=== PATIENT | male | born 1975 | race Caucasian/White ===

== ENCOUNTER 2024-03-15 05:30 | Inpatient (IN) | payer MEDICAID ==
[2024-03-15] VITALS (8 sets, daily range): BP systolic 121–142; BP diastolic 74–83; PULSE 96–120; RESP 18–22; TEMP 97–102.4; O2SAT 95–98
[~2024-03-15] VITALS: Ht 180.3 cm; Wt 103.0 kg
[2024-03-15] MEDS ORDERED: magnesium Cl slow-release 64mg tablet PO PRN (08:45)
[2024-03-15] MEDS ORDERED: ondansetron/PF 4mg/2ml inj IV PRN (08:45)
[2024-03-15] MEDS ORDERED: magnesium sulf-water 4G/100mL 100 ML IV PRN (08:45)
[2024-03-15] MEDS ORDERED: potassium Cl 20 mEq SR tablet PO PRN ×2 (08:45)
[2024-03-15] MEDS ORDERED: magnesium sulf-water 2g/50mL 50 ML IV PRN (08:45)
[2024-03-15] MEDS ORDERED: potassium Cl 40MEQ/1/2NS 520ml 520 ML IV PRN (08:45)
[2024-03-15] MEDS ORDERED: AMLO-708 PO (08:48)
[2024-03-15] MEDS ORDERED: NICO2GUM29 (08:48)
[2024-03-15] MEDS: azithromycin 250mg tablet PO ONE (09:08)
[2024-03-15] MEDS: famotidine 20mg tablet PO ONE (09:08)
[2024-03-15] MEDS: ringers solution, lacted 1,000 ML IV ONE ×2 (09:08→12:24)
[2024-03-15] MEDS: enoxaparin 30mg/0.3ml syringe SUBCUT ONE (09:09)
[2024-03-15] MEDS: CefTRIAXone/D5W-Rocephin 1gm 50 ML IV ONE ×2 (09:10→19:08)
[2024-03-15 09:26] LABS: BASOPHILS % (AUTO) 0.1 % (0-1); EOSINOPHILS % (AUTO) 0 % (0-6); HEMATOCRIT 35.4 % (42.0-52.0); HEMOGLOBIN 11.8 g/dl (14.0-17.9); LYMPHOCYTES # (AUTO) 0.7 X10'3 (1.1-4.8); MEAN CORPUSCULAR HGB CONC 33.3 g/dL (33.0-36.5); MEAN CORPUSCULAR VOLUME 90.2 FL (78-98); MEAN PLATELET VOLUME 9.4 FL (7.4-10.4); MONOCYTES # (AUTO) 0.5 X10'3 (0-0.9); MONOCYTES % (AUTO) 2.3 % (2-12); NEUTROPHILS # (AUTO) 20.8 X10'3 (1.8-7.7); NEUTROPHILS % (AUTO) 94.6 % (42-75); PLATELET COUNT 229 X10'3 (140-440); RED BLOOD COUNT 3.92 X10'6 (4.70-6.10); RED CELL DISTRIBUTION WIDTH 13.1 % (11.5-14.5)
[2024-03-15 09:39] LABS: ALANINE AMINOTRANSFERASE 24 U/L (12-78); ALBUMIN 2.5 G/DL (3.4-5.0); ALBUMIN/GLOBULIN RATIO 0.6 (1.1-1.5); ALKALINE PHOSPHATASE 89 IU/L (46-116); ANION GAP 12 (8-16); ASPARTATE AMINO TRANSFERASE 11 U/L (10-37); BILIRUBIN,TOTAL 0.4 MG/DL (0.1-1.0); BLOOD UREA NITROGEN 17 MG/DL (7-18); BUN/CREATININE RATIO 13.5 (10.0-20.0); CALCIUM 8.7 MG/DL (8.5-10.1); CHLORIDE 95 MMOL/L (99-107); CREATININE 1.26 MG/DL (0.60-1.10); GLUCOSE 177 MG/DL (70-104); MAGNESIUM 1.8 MG/DL (1.5-2.4); SODIUM 128 MMOL/L (135-145); TOTAL CARBON DIOXIDE 20.8 MMOL/L (24-32); TOTAL PROTEIN 6.6 G/DL (6.4-8.2); VANCOMYCIN,RANDOM 15.4 ug/mL (20.0-30.0); eCRCL 76 ML/MIN; eGFR 61 ML/MIN
[2024-03-15] MEDS: LIDOcaine 5% patch TP SCH (10:51)
[2024-03-15] MEDS: acetaminophen 325mg tablet PO PRN (10:54)
[2024-03-15] MEDS: PERFLUTREN PROTEIN-A MICROSPHR (Optison) 0.22 MG/ML 3ML VIAL IV ONE (12:00)
[2024-03-15] MEDS: HYDROcodone/acetaminophen 5mg/325mg tablet PO ONE (12:29)
[2024-03-15] MEDS: ringers solution, lacted 1,000 ML IV SCH (13:15)
[2024-03-15] MEDS: VANCOmycin 1250MG/NS 250ml Bag 250 ML IV SCH (14:00)
[2024-03-15] MEDS: morphine 2 MG/ML inj. syringe IV PRN (15:01)
[2024-03-15] MEDS ORDERED: CefTRIAXone/D5W-Rocephin 1gm 50 ML IV SCH (16:45)
[2024-03-15] MEDS: azithromycin/NS 500mg/250ml 250 ML IV ONE (16:45)
[2024-03-15] MEDS: HYDROcodone/acetaminophen 10/325mg tab PO PRN (18:11)
[2024-03-15] MEDS: K and/or MAG REPLACEMENT MC SCH (20:00)
[2024-03-15] MEDS ORDERED: piperacillin/tazo 3.375gm/50ml 50 ML IV SCH (20:00)
[2024-03-16] VITALS (16 sets, daily range): BP systolic 127–171; BP diastolic 73–96; PULSE 66–117; RESP 15–24; TEMP 97.4–98.3; O2SAT 90–98
[2024-03-16 06:41] LABS: BASOPHILS # (AUTO) 0.1 X10'3 (0-0.2); BASOPHILS % (AUTO) 0.3 % (0-1); EOSINOPHILS % (AUTO) 0 % (0-6); HEMOGLOBIN 11.2 g/dl (14.0-17.9); LYMPHOCYTES # (AUTO) 1.1 X10'3 (1.1-4.8); LYMPHOCYTES % (AUTO) 5.1 % (21-51); MEAN CORPUSCULAR HEMOGLOBIN 29.7 PG (27.0-31.0); MEAN PLATELET VOLUME 9.3 FL (7.4-10.4); MONOCYTES # (AUTO) 1.7 X10'3 (0-0.9); MONOCYTES % (AUTO) 7.7 % (2-12); NEUTROPHILS # (AUTO) 19.2 X10'3 (1.8-7.7); NEUTROPHILS % (AUTO) 86.9 % (42-75); PLATELET COUNT 248 X10'3 (140-440); RED BLOOD COUNT 3.78 X10'6 (4.70-6.10); RED CELL DISTRIBUTION WIDTH 13.3 % (11.5-14.5); WHITE BLOOD COUNT 22.1 X10'3 (4.5-11.0)
[2024-03-16 07:03] LABS: ALBUMIN 2.3 G/DL (3.4-5.0); ANION GAP 10 (8-16); BLOOD UREA NITROGEN 18 MG/DL (7-18); BUN/CREATININE RATIO 25.4 (10.0-20.0); CALCIUM 8.7 MG/DL (8.5-10.1); CHLORIDE 96 MMOL/L (99-107); CREATININE 0.71 MG/DL (0.60-1.10); GLUCOSE 109 MG/DL (70-104); MAGNESIUM 2.2 MG/DL (1.5-2.4); POTASSIUM 4.1 MMOL/L (3.5-5.1); SODIUM 131 MMOL/L (135-145); TOTAL CARBON DIOXIDE 25.4 MMOL/L (24-32); eCRCL 134 ML/MIN; eGFR > 90 ML/MIN
[2024-03-16] MEDS: CefTRIAXone 2gm/D5W 50ml BAG 50 ML IV SCH (08:58)
[2024-03-16] MEDS: HYDROmorphone inj. 0.5 MG/0.5 ML DISP.SYRIN IV PRN (10:28)
[2024-03-16] MEDS: azithromycin/NS 500mg/250ml 250 ML IV SCH (10:29)
[2024-03-16] MEDS: mag hydrox/Alum hydrox/simeth 30ml oral suspension PO PRN (10:43)
[2024-03-16] MEDS: HYDROmorphone 1 mg/ml syringe IV PRN (14:03)
[2024-03-16] MEDS: albuterol 2.5 MG/3 ML nebule NEB PRN (15:57)
[2024-03-16] MEDS: methylPREDNISolone sod succ 125mg/2ml vial IV ONE (16:31)
[2024-03-16] MEDS: piperacillin/tazo 3.375gm/50ml 50 ML IV ONE (17:17)
[2024-03-16] MEDS: ipratropium/albuterol 3ml nebule NEB SCH (20:10)
[2024-03-16] MEDS: VANCOMYCIN LEVEL IV ONE (22:30)
[2024-03-17] VITALS (18 sets, daily range): BP systolic 130–155; BP diastolic 81–100; PULSE 67–96; RESP 14–19; TEMP 96.8–98.9; O2SAT 93–98
[2024-03-17 05:47] LABS: BASOPHILS % (AUTO) 0 % (0-1); EOSINOPHILS % (AUTO) 0 % (0-6); LYMPHOCYTES # (AUTO) 0.7 X10'3 (1.1-4.8); LYMPHOCYTES % (AUTO) 4.3 % (21-51); MEAN CORPUSCULAR HEMOGLOBIN 30.2 PG (27.0-31.0); MEAN CORPUSCULAR HGB CONC 33.5 g/dL (33.0-36.5); MEAN CORPUSCULAR VOLUME 90.2 FL (78-98); MEAN PLATELET VOLUME 9.7 FL (7.4-10.4); MONOCYTES # (AUTO) 0.8 X10'3 (0-0.9); NEUTROPHILS # (AUTO) 15.1 X10'3 (1.8-7.7); NEUTROPHILS % (AUTO) 90.7 % (42-75); PLATELET COUNT 240 X10'3 (140-440); RED BLOOD COUNT 3.66 X10'6 (4.70-6.10); RED CELL DISTRIBUTION WIDTH 13.5 % (11.5-14.5); WHITE BLOOD COUNT 16.6 X10'3 (4.5-11.0)
[2024-03-17 05:57] LABS: ALBUMIN 2.2 G/DL (3.4-5.0); ANION GAP 8 (8-16); BLOOD UREA NITROGEN 16 MG/DL (7-18); BUN/CREATININE RATIO 26.2 (10.0-20.0); CALCIUM 8.8 MG/DL (8.5-10.1); CHLORIDE 99 MMOL/L (99-107); CREATININE 0.61 MG/DL (0.60-1.10); GLUCOSE 161 MG/DL (70-104); MAGNESIUM 2.4 MG/DL (1.5-2.4); SODIUM 135 MMOL/L (135-145); eCRCL 156 ML/MIN; eGFR > 90 ML/MIN
[2024-03-17] MEDS ORDERED: bisacodyl 10mg suppository rectal RC PRN (09:10)
[2024-03-17] MEDS: magnesium hydroxide 30ml (MOM) UD suspension PO PRN (09:52)
[2024-03-17] MEDS: vancomycin 1,750 MG in NS 350ml IV soln IV SCH (12:51)
[2024-03-18] VITALS (20 sets, daily range): BP systolic 108–156; BP diastolic 70–95; PULSE 75–117; RESP 17–22; TEMP 97.4–99.5; O2SAT 90–98
[2024-03-18 04:09] LABS: BASOPHILS % (AUTO) 0.1 % (0-1); EOSINOPHILS % (AUTO) 0 % (0-6); HEMATOCRIT 35.6 % (42.0-52.0); HEMOGLOBIN 11.7 g/dl (14.0-17.9); LYMPHOCYTES % (AUTO) 11.3 % (21-51); MEAN CORPUSCULAR HEMOGLOBIN 29.6 PG (27.0-31.0); MEAN CORPUSCULAR HGB CONC 32.8 g/dL (33.0-36.5); MEAN PLATELET VOLUME 9.3 FL (7.4-10.4); MONOCYTES # (AUTO) 1.7 X10'3 (0-0.9); MONOCYTES % (AUTO) 9.6 % (2-12); PLATELET COUNT 290 X10'3 (140-440); RED BLOOD COUNT 3.96 X10'6 (4.70-6.10); RED CELL DISTRIBUTION WIDTH 13.9 % (11.5-14.5); WHITE BLOOD COUNT 17.7 X10'3 (4.5-11.0)
[2024-03-18 04:40] LABS: ALBUMIN 2.3 G/DL (3.4-5.0); ANION GAP 8 (8-16); BLOOD UREA NITROGEN 14 MG/DL (7-18); BUN/CREATININE RATIO 22.6 (10.0-20.0); CALCIUM 8.7 MG/DL (8.5-10.1); CHLORIDE 97 MMOL/L (99-107); CREATININE 0.62 MG/DL (0.60-1.10); GLUCOSE 92 MG/DL (70-104); MAGNESIUM 2.2 MG/DL (1.5-2.4); POTASSIUM 3.7 MMOL/L (3.5-5.1); SODIUM 134 MMOL/L (135-145); TOTAL CARBON DIOXIDE 29.5 MMOL/L (24-32); eCRCL 154 ML/MIN; eGFR > 90 ML/MIN
[2024-03-18] MEDS: furosemide 20 MG/2 ML vial IV ONE (14:05)
[2024-03-18] MEDS: clindamycin-Cleocin 900mg/D5W 50 ML IV SCH (17:10)
[2024-03-18] MEDS: VANCOMYCIN LEVEL IV ONE (22:46)
[2024-03-18] MEDS: guaiFENesin ER 600mg tablet PO SCH (23:40)
[2024-03-19] VITALS (18 sets, daily range): BP systolic 122–145; BP diastolic 72–79; PULSE 87–109; RESP 15–27; TEMP 97.9–100.6; O2SAT 85–95
[2024-03-19 04:42] LABS: RED CELL DISTRIBUTION WIDTH 13.9 % (11.5-14.5)
[2024-03-19 04:44] LABS: HEMATOCRIT 36.1 % (42.0-52.0); HEMOGLOBIN 12.1 g/dl (14.0-17.9); MEAN CORPUSCULAR HEMOGLOBIN 29.7 PG (27.0-31.0); MEAN CORPUSCULAR HGB CONC 33.4 g/dL (33.0-36.5); MEAN PLATELET VOLUME 9.2 FL (7.4-10.4); PLATELET COUNT 323 X10'3 (140-440); RED BLOOD COUNT 4.06 X10'6 (4.70-6.10); WHITE BLOOD COUNT 20.4 X10'3 (4.5-11.0)
[2024-03-19 04:49] LABS: ALBUMIN 2.1 G/DL (3.4-5.0); ANION GAP 9 (8-16); BLOOD UREA NITROGEN 12 MG/DL (7-18); BUN/CREATININE RATIO 18.8 (10.0-20.0); CALCIUM 8.2 MG/DL (8.5-10.1); CHLORIDE 91 MMOL/L (99-107); CREATININE 0.64 MG/DL (0.60-1.10); GLUCOSE 94 MG/DL (70-104); MAGNESIUM 1.8 MG/DL (1.5-2.4); POTASSIUM 3.5 MMOL/L (3.5-5.1); SODIUM 130 MMOL/L (135-145); TOTAL CARBON DIOXIDE 30.4 MMOL/L (24-32); eCRCL 149 ML/MIN; eGFR > 90 ML/MIN
[2024-03-19 05:14] LABS: TOTAL CELLS COUNTED 100
[2024-03-19 05:15] LABS: PLATELET ESTIMATE NORMAL
[2024-03-19] MEDS ORDERED: iohexol 300mg/ml 100ml inj. ONE (11:35)
[2024-03-19] MEDS: lactose-reduced food (Ensure High Protein) 237ml bottle PO SCH (17:30)
[2024-03-19] MEDS: normal saline 1000ml 1,000 ML IV SCH (19:10)
[2024-03-20] VITALS (13 sets, daily range): BP systolic 110–149; BP diastolic 66–85; PULSE 57–106; RESP 16–22; TEMP 97.5–99.9; O2SAT 93–96
[2024-03-20 04:45] LABS: BASOPHILS # (AUTO) 0.1 X10'3 (0-0.2); BASOPHILS % (AUTO) 0.4 % (0-1); EOSINOPHILS % (AUTO) 0.1 % (0-6); HEMATOCRIT 33.6 % (42.0-52.0); HEMOGLOBIN 11.2 g/dl (14.0-17.9); LYMPHOCYTES # (AUTO) 1.6 X10'3 (1.1-4.8); LYMPHOCYTES % (AUTO) 6.8 % (21-51); MEAN CORPUSCULAR HEMOGLOBIN 29.7 PG (27.0-31.0); MEAN CORPUSCULAR HGB CONC 33.4 g/dL (33.0-36.5); MEAN CORPUSCULAR VOLUME 89.1 FL (78-98); MEAN PLATELET VOLUME 8.8 FL (7.4-10.4); MONOCYTES # (AUTO) 1.4 X10'3 (0-0.9); MONOCYTES % (AUTO) 5.9 % (2-12); NEUTROPHILS # (AUTO) 20.8 X10'3 (1.8-7.7); NEUTROPHILS % (AUTO) 86.8 % (42-75); PLATELET COUNT 341 X10'3 (140-440); RED BLOOD COUNT 3.77 X10'6 (4.70-6.10); RED CELL DISTRIBUTION WIDTH 13.7 % (11.5-14.5); WHITE BLOOD COUNT 23.9 X10'3 (4.5-11.0)
[2024-03-20 04:53] LABS: ALBUMIN 1.9 G/DL (3.4-5.0); ANION GAP 4 (8-16); BLOOD UREA NITROGEN 10 MG/DL (7-18); BUN/CREATININE RATIO 16.4 (10.0-20.0); CALCIUM 7.9 MG/DL (8.5-10.1); CHLORIDE 91 MMOL/L (99-107); CREATININE 0.61 MG/DL (0.60-1.10); GLUCOSE 97 MG/DL (70-104); POTASSIUM 3.4 MMOL/L (3.5-5.1); SODIUM 126 MMOL/L (135-145); TOTAL CARBON DIOXIDE 30.6 MMOL/L (24-32); eCRCL 156 ML/MIN; eGFR > 90 ML/MIN
[2024-03-20 05:14] LABS: PLATELET ESTIMATE NORMAL; TOTAL CELLS COUNTED 100
[2024-03-20] MEDS: linezolid 600mg/300ml PREMIX 300 ML IV SCH (11:45)
[2024-03-20] MEDS ORDERED: magnesium sulf-water 4G/100mL 100 ML IV PRN (12:45)
[2024-03-20] MEDS ORDERED: potassium Cl 20 mEq SR tablet PO PRN (12:45)
[2024-03-20] MEDS ORDERED: magnesium sulf-water 2g/50mL 50 ML IV PRN (12:45)
[2024-03-20] MEDS ORDERED: potassium Cl 40MEQ/1/2NS 520ml 520 ML IV PRN (12:45)
[2024-03-20] MEDS: albuterol 2.5 MG/3 ML nebule NEB SCH (15:45)
[2024-03-20] MEDS: MESSAGE TO PHARMACY IJ ONE (15:45)
[2024-03-20] MEDS: acetylcysteine 200 MG/ml 4ml vial INH SCH (15:45)
[2024-03-20] MEDS ORDERED: folic acid 1mg/0.2ml inj IV SCH (15:50)
[2024-03-20] MEDS ORDERED: thiamine 100mg/ml 2ml inj. IV SCH (15:50)
[2024-03-20] MEDS: MESSAGE TO NURSING PO ONE (16:17)
[2024-03-20] MEDS: FOLIC ACID IV ONE (17:09)
[2024-03-20] MEDS: NORMAL SALINE IV ONE (17:09)
[2024-03-20] MEDS: THIAMINE IV ONE (17:09)
[2024-03-20] MEDS: PYRIDOXINE HCL (VITAMIN B6) 250 MG TABLET PO SCH (17:22)
[2024-03-20] MEDS: metroNIDAZOLE-Flagyl 500mg/NS 100 ML IV SCH (17:24)
[2024-03-20] MEDS: potassium Cl 20 mEq SR tablet PO PRN (19:51)
[2024-03-20] MEDS: mupirocin 2% nasal ointment 1gm UD NS SCH (19:51)
[2024-03-21] VITALS (25 sets, daily range): BP systolic 103–178; BP diastolic 51–87; PULSE 68–103; RESP 14–28; TEMP 97.5–98.1; O2SAT 96–100
[2024-03-21] MEDS: MESSAGE TO NURSING PO ONE ×3 (04:43)
[2024-03-21] MEDS: morphine 2 MG/ML inj. syringe IV ONE (05:55)
[2024-03-21 06:32] LABS: BASOPHILS # (AUTO) 0.1 X10'3 (0-0.2); BASOPHILS % (AUTO) 0.2 % (0-1); EOSINOPHILS % (AUTO) 0.1 % (0-6); HEMATOCRIT 33.9 % (42.0-52.0); HEMOGLOBIN 11.2 g/dl (14.0-17.9); LYMPHOCYTES # (AUTO) 1.5 X10'3 (1.1-4.8); LYMPHOCYTES % (AUTO) 5.6 % (21-51); MEAN CORPUSCULAR HEMOGLOBIN 29.6 PG (27.0-31.0); MEAN CORPUSCULAR HGB CONC 33.1 g/dL (33.0-36.5); MEAN CORPUSCULAR VOLUME 89.5 FL (78-98); MEAN PLATELET VOLUME 8.9 FL (7.4-10.4); MONOCYTES # (AUTO) 1.3 X10'3 (0-0.9); MONOCYTES % (AUTO) 4.9 % (2-12); NEUTROPHILS # (AUTO) 23.5 X10'3 (1.8-7.7); NEUTROPHILS % (AUTO) 89.2 % (42-75); PLATELET COUNT 392 X10'3 (140-440); RED BLOOD COUNT 3.79 X10'6 (4.70-6.10)
[2024-03-21 06:38] LABS: WHITE BLOOD COUNT 26.4 X10'3 (4.5-11.0)
[2024-03-21 06:40] LABS: APTT 27 SECONDS (22-32); INR 1.2 INR; PROTHROMBIN TIME 12.7 SECONDS (9.0-12.0)
[2024-03-21 07:00] LABS: ALANINE AMINOTRANSFERASE 24 U/L (12-78); ALBUMIN 1.8 G/DL (3.4-5.0); ALBUMIN/GLOBULIN RATIO 0.5 (1.1-1.5); ALKALINE PHOSPHATASE 115 IU/L (46-116); ANION GAP 7 (8-16); ASPARTATE AMINO TRANSFERASE 23 U/L (10-37); BILIRUBIN,TOTAL 0.5 MG/DL (0.1-1.0); BLOOD UREA NITROGEN 8 MG/DL (7-18); CHLORIDE 95 MMOL/L (99-107); CREATININE 0.57 MG/DL (0.60-1.10); GLUCOSE 96 MG/DL (70-104); POTASSIUM 3.8 MMOL/L (3.5-5.1); SODIUM 129 MMOL/L (135-145); TOTAL CARBON DIOXIDE 26.8 MMOL/L (24-32); TOTAL PROTEIN 5.7 G/DL (6.4-8.2); eCRCL 167 ML/MIN; eGFR > 90 ML/MIN
[2024-03-21 07:38] LABS: TOTAL CELLS COUNTED 100
[2024-03-21 07:39] LABS: PLATELET ESTIMATE NORMAL
[2024-03-21 07:40] LABS: LARGE PLATELETS FEW
[2024-03-21] MEDS: lactose-reduced food (Ensure Enlive) - 237ml bottle PO SCH (12:00)
[2024-03-21] MEDS ORDERED: lactose-reduced food (Ensure Enlive) - 237ml bottle PO SCH (13:00)
[2024-03-21] MEDS ORDERED: sevoflurane 250ml liquid IH ONE (15:32)
[2024-03-21] MEDS ORDERED: MIDAZolam 1mg/ml 10ml vial ONE (15:39)
[2024-03-21] MEDS ORDERED: fentaNYL /PF 50mcg/ml 5ml ampule ONE (15:40)
[2024-03-21] MEDS ORDERED: propofol inj 20 ML IV ONE (15:42)
[2024-03-21] MEDS ORDERED: rocuronium 10mg/ml inj IV ONE ×5 (15:42→18:17)
[2024-03-21] MEDS ORDERED: morphine 2 MG/ML inj. syringe IV PRN (16:55)
[2024-03-21] MEDS ORDERED: ondansetron/PF 4mg/2ml inj IV PRN ×2 (16:55→18:30)
[2024-03-21] MEDS ORDERED: ringers solution, lacted 1,000 ML IV SCH (16:55)
[2024-03-21] MEDS ORDERED: albumin (Human) 5% 250ml 250 ML IV ONE (18:02)
[2024-03-21] MEDS ORDERED: magnesium hydroxide 30ml (MOM) UD suspension PO PRN (18:30)
[2024-03-21] MEDS ORDERED: metoclopramide 5 mg/ml inj IV PRN (18:30)
[2024-03-21] MEDS ORDERED: FENTANYL-0.9 % NACL/PF 100 ML IV SCH (19:10)
[2024-03-21] MEDS: BUPIVAcaine/PF 2.5mg/ml (0.25%) 10ml vial ONE (19:16)
[2024-03-21 19:20] LABS: ABG BASE EXCESS 1.5 mmol/L (-2.0-2.0); ABG HCO3 25.7 mmol/L (22.0-26.0); ABG OXYGEN SATURATION 97.4 % (94-97); ABG PCO2 (T) 40.1 mmHg (35.0-48.0); ABG PH (T) 7.427 (7.340-7.440); ABG PO2 (T) 99.8 mmHg (75.0-100.0); FCOHb 0.3 % (0.0-3.9); FHHb 2.6 % (0.0-5.0); FMetHb 0.3 % (0.0-1.5); FO2Hb 96.8 % (94-97); MODE VENT - SIMV; PATIENT TEMPERATURE 37.7; PEEP 5 cm H2O; RESPIRATORY RATE 14 b/min; TIDAL VOLUME 700 mL; TOTAL HEMOGLOBIN 11.7 G/dl (14.0-17.9)
[2024-03-21] MEDS ORDERED: HYDROmorphone 1 mg/ml syringe IV PRN (19:25)
[2024-03-21] MEDS: albuterol 2.5 MG/3 ML nebule NEB SCH (19:29)
[2024-03-21 20:03] LABS: BASOPHILS # (AUTO) 0.3 X10'3 (0-0.2); BASOPHILS % (AUTO) 0.9 % (0-1); EOSINOPHILS % (AUTO) 0.1 % (0-6); HEMATOCRIT 33.4 % (42.0-52.0); HEMOGLOBIN 11.1 g/dl (14.0-17.9); LYMPHOCYTES # (AUTO) 1.3 X10'3 (1.1-4.8); LYMPHOCYTES % (AUTO) 4.1 % (21-51); MEAN CORPUSCULAR HEMOGLOBIN 29.6 PG (27.0-31.0); MEAN CORPUSCULAR HGB CONC 33.1 g/dL (33.0-36.5); MEAN CORPUSCULAR VOLUME 89.4 FL (78-98); MEAN PLATELET VOLUME 8.8 FL (7.4-10.4); MONOCYTES # (AUTO) 1.5 X10'3 (0-0.9); MONOCYTES % (AUTO) 4.7 % (2-12); NEUTROPHILS # (AUTO) 29.7 X10'3 (1.8-7.7); NEUTROPHILS % (AUTO) 90.2 % (42-75); PLATELET COUNT 446 X10'3 (140-440); RED BLOOD COUNT 3.74 X10'6 (4.70-6.10); RED CELL DISTRIBUTION WIDTH 13.8 % (11.5-14.5)
[2024-03-21] MEDS: albumin (Human) 5% 250ml 250 ML IV ONE (20:09)
[2024-03-21] MEDS: dexmedetomidin/NS 400mcg/100ml 100 ML IV SCH (20:10)
[2024-03-21 20:11] LABS: ALBUMIN 1.8 G/DL (3.4-5.0); ANION GAP 7 (8-16); BLOOD UREA NITROGEN 10 MG/DL (7-18); BUN/CREATININE RATIO 16.9 (10.0-20.0); CALCIUM 7.4 MG/DL (8.5-10.1); CHLORIDE 95 MMOL/L (99-107); CREATININE 0.59 MG/DL (0.60-1.10); GLUCOSE 106 MG/DL (70-104); MAGNESIUM 1.8 MG/DL (1.5-2.4); SODIUM 130 MMOL/L (135-145); TOTAL CARBON DIOXIDE 27.6 MMOL/L (24-32); eCRCL 161 ML/MIN; eGFR > 90 ML/MIN
[2024-03-21] MEDS: propofol 1000mg/100ml bottle 100 ML IV SCH (20:11)
[2024-03-21 20:12] LABS: POTASSIUM 3.9 MMOL/L (3.5-5.1)
[2024-03-21 20:13] LABS: WHITE BLOOD COUNT 32.9 X10'3 (4.5-11.0)
[2024-03-21] MEDS: LIDOcaine 1% 30ml preserv. free vial ONE (20:43)
[2024-03-21] MEDS: LIDOcaine 1% (10mg/ml) 2ml vial ONE (20:44)
[2024-03-21] MEDS: acetaminophen 1,000mg/100ml IV 100 ML IV SCH (21:05)
[2024-03-21] MEDS: docusate sod 100mg capsule PO SCH (21:06)
[2024-03-21] MEDS: gabapentin 300mg capsule PO SCH (21:06)
[2024-03-21 21:15] LABS: ABG BASE EXCESS 0.8 mmol/L (-2.0-2.0); ABG HCO3 24.1 mmol/L (22.0-26.0); ABG OXYGEN SATURATION 99.2 % (94-97); ABG PCO2 (T) 35.5 mmHg (35.0-48.0); ABG PH (T) 7.453 (7.340-7.440); ABG PO2 (T) 149.2 mmHg (75.0-100.0); FCOHb 0.3 % (0.0-3.9); FHHb 0.8 % (0.0-5.0); FMetHb 0.3 % (0.0-1.5); FO2Hb 98.6 % (94-97); MODE VENT - SIMV; PEEP 10 cm H2O; RESPIRATORY RATE 16 b/min; TIDAL VOLUME 500 mL; TOTAL HEMOGLOBIN 11.4 G/dl (14.0-17.9)
[2024-03-21] MEDS: ipratropium/albuterol 3ml nebule NEB SCH (23:12)
[2024-03-22] VITALS (38 sets, daily range): BP systolic 75–127; BP diastolic 46–82; PULSE 49–92; RESP 11–25; O2SAT 93–100
[2024-03-22] MEDS ORDERED: ceFAZolin 1GM/D5W- ADD-VANTAGE 50 ML IV SCH
[2024-03-22] MEDS: HYDROmorphone/PF 0.2 MG/ML SYRINGE IV PRN (00:06)
[2024-03-22] MEDS: COMMUNICATION ORDER 1 EA MISC MC ONE ×2 (02:30→11:00)
[2024-03-22 02:59] LABS: BASOPHILS # (AUTO) 0.3 X10'3 (0-0.2); EOSINOPHILS # (AUTO) 0.2 X10'3 (0-0.9); EOSINOPHILS % (AUTO) 0.8 % (0-6); HEMATOCRIT 29.8 % (42.0-52.0); LYMPHOCYTES % (AUTO) 3.6 % (21-51); MEAN CORPUSCULAR HEMOGLOBIN 29.8 PG (27.0-31.0); MEAN CORPUSCULAR HGB CONC 33.6 g/dL (33.0-36.5); MEAN CORPUSCULAR VOLUME 88.8 FL (78-98); MEAN PLATELET VOLUME 8.7 FL (7.4-10.4); MONOCYTES # (AUTO) 0.7 X10'3 (0-0.9); MONOCYTES % (AUTO) 2.4 % (2-12); NEUTROPHILS # (AUTO) 26.7 X10'3 (1.8-7.7); NEUTROPHILS % (AUTO) 92.2 % (42-75); PLATELET COUNT 351 X10'3 (140-440); RED BLOOD COUNT 3.36 X10'6 (4.70-6.10); RED CELL DISTRIBUTION WIDTH 14.1 % (11.5-14.5)
[2024-03-22] MEDS: albuterol 2.5 MG/3 ML nebule NEB SCH (03:00)
[2024-03-22 03:12] LABS: WHITE BLOOD COUNT 28.9 X10'3 (4.5-11.0)
[2024-03-22] MEDS: albuterol 2.5 MG/3 ML nebule NEB PRN (03:12)
[2024-03-22 03:23] LABS: ABG BASE EXCESS 2.7 mmol/L (-2.0-2.0); ABG HCO3 25.5 mmol/L (22.0-26.0); ABG OXYGEN SATURATION 97.4 % (94-97); ABG PCO2 (T) 34.4 mmHg (35.0-48.0); ABG PH (T) 7.491 (7.340-7.440); ABG PO2 (T) 93.2 mmHg (75.0-100.0); FCOHb 0.1 % (0.0-3.9); FHHb 2.6 % (0.0-5.0); FMetHb 0.3 % (0.0-1.5); MODE VENT - SIMV; PATIENT TEMPERATURE 37.8; PEEP 10 cm H2O; RESPIRATORY RATE 16 b/min; TIDAL VOLUME 500 mL; TOTAL HEMOGLOBIN 11.5 G/dl (14.0-17.9)
[2024-03-22 03:42] LABS: ALANINE AMINOTRANSFERASE 23 U/L (12-78); ALBUMIN 1.7 G/DL (3.4-5.0); ALBUMIN/GLOBULIN RATIO 0.5 (1.1-1.5); ALKALINE PHOSPHATASE 87 IU/L (46-116); ANION GAP 6 (8-16); ASPARTATE AMINO TRANSFERASE 14 U/L (10-37); BILIRUBIN,TOTAL 0.5 MG/DL (0.1-1.0); BLOOD UREA NITROGEN 8 MG/DL (7-18); BUN/CREATININE RATIO 13.6 (10.0-20.0); CALCIUM 7.5 MG/DL (8.5-10.1); CHLORIDE 97 MMOL/L (99-107); CREATININE 0.59 MG/DL (0.60-1.10); GLUCOSE 121 MG/DL (70-104); POTASSIUM 3.8 MMOL/L (3.5-5.1); SODIUM 131 MMOL/L (135-145); TOTAL CARBON DIOXIDE 28.1 MMOL/L (24-32); TOTAL PROTEIN 4.8 G/DL (6.4-8.2); TRIGLYCERIDES 80 MG/DL (20-135); eCRCL 161 ML/MIN; eGFR > 90 ML/MIN
[2024-03-22] MEDS: ketorolac trometh. 30mg/ml inj. IV PRN (05:09)
[2024-03-22] MEDS: albumin (Human) 5% 250ml 250 ML IV ONE ×2 (07:48→08:00)
[2024-03-22 08:17] LABS: MAGNESIUM 1.9 MG/DL (1.5-2.4); PHOSPHORUS 4.2 MG/DL (2.3-4.5)
[2024-03-22] MEDS: morphine 4 MG/ML inj SYRINge IV PRN (09:11)
[2024-03-22] MEDS: magnesium Cl slow-release 64mg tablet PO PRN (09:12)
[2024-03-22] MEDS ORDERED: MULT-1085 PO (11:16)
[2024-03-22] MEDS: HYDROcodone/acetaminophen 5mg/325mg tablet PO PRN (18:04)
[2024-03-22] MEDS ORDERED: albuterol 2.5 MG/3 ML nebule NEB SCH (19:15)
[2024-03-23] VITALS (21 sets, daily range): BP systolic 114–167; BP diastolic 64–87; PULSE 73–98; RESP 16–20; TEMP 97.6–101.5; O2SAT 92–99
[2024-03-23] MEDS: HYDROcodone/acetaminophen 10/325mg tab PO PRN (02:39)
[2024-03-23] MEDS ORDERED: albuterol 2.5 MG/3 ML nebule NEB SCH (03:00)
[2024-03-23] MEDS: albuterol 2.5 MG/3 ML nebule NEB SCH (03:32)
[2024-03-23 05:45] LABS: BASOPHILS % (AUTO) 0.2 % (0-1); EOSINOPHILS # (AUTO) 0.1 X10'3 (0-0.9); EOSINOPHILS % (AUTO) 0.4 % (0-6); HEMATOCRIT 32.2 % (42.0-52.0); HEMOGLOBIN 10.6 g/dl (14.0-17.9); LYMPHOCYTES # (AUTO) 1.5 X10'3 (1.1-4.8); LYMPHOCYTES % (AUTO) 7.6 % (21-51); MEAN CORPUSCULAR HEMOGLOBIN 29.4 PG (27.0-31.0); MEAN CORPUSCULAR HGB CONC 32.9 g/dL (33.0-36.5); MEAN CORPUSCULAR VOLUME 89.5 FL (78-98); MEAN PLATELET VOLUME 8.9 FL (7.4-10.4); MONOCYTES # (AUTO) 1.2 X10'3 (0-0.9); MONOCYTES % (AUTO) 6.2 % (2-12); NEUTROPHILS # (AUTO) 16.8 X10'3 (1.8-7.7); NEUTROPHILS % (AUTO) 85.6 % (42-75); PLATELET COUNT 420 X10'3 (140-440); RED CELL DISTRIBUTION WIDTH 14.5 % (11.5-14.5); WHITE BLOOD COUNT 19.7 X10'3 (4.5-11.0)
[2024-03-23 06:25] LABS: ALANINE AMINOTRANSFERASE 27 U/L (12-78); ALBUMIN 1.8 G/DL (3.4-5.0); ALBUMIN/GLOBULIN RATIO 0.5 (1.1-1.5); ALKALINE PHOSPHATASE 133 IU/L (46-116); ANION GAP 6 (8-16); ASPARTATE AMINO TRANSFERASE 29 U/L (10-37); BILIRUBIN,TOTAL 0.5 MG/DL (0.1-1.0); BLOOD UREA NITROGEN 8 MG/DL (7-18); CALCIUM 7.6 MG/DL (8.5-10.1); CHLORIDE 98 MMOL/L (99-107); GLUCOSE 102 MG/DL (70-104); POTASSIUM 3.3 MMOL/L (3.5-5.1); SODIUM 131 MMOL/L (135-145); TOTAL CARBON DIOXIDE 27.5 MMOL/L (24-32); TOTAL PROTEIN 5.1 G/DL (6.4-8.2); eCRCL 190 ML/MIN; eGFR > 90 ML/MIN
[2024-03-23 16:01] LABS: ALBUMIN 1.7 G/DL (3.4-5.0); ANION GAP 5 (8-16); BLOOD UREA NITROGEN 6 MG/DL (7-18); BUN/CREATININE RATIO 11.3 (10.0-20.0); CALCIUM 7.2 MG/DL (8.5-10.1); CHLORIDE 99 MMOL/L (99-107); CREATININE 0.53 MG/DL (0.60-1.10); GLUCOSE 115 MG/DL (70-104); POTASSIUM 3.3 MMOL/L (3.5-5.1); SODIUM 132 MMOL/L (135-145); TOTAL CARBON DIOXIDE 28.2 MMOL/L (24-32); eCRCL 180 ML/MIN; eGFR > 90 ML/MIN
[2024-03-23] MEDS ORDERED: magnesium sulf-water 4G/100mL 100 ML IV PRN (16:20)
[2024-03-23] MEDS ORDERED: potassium Cl 40MEQ/1/2NS 520ml 520 ML IV PRN (16:20)
[2024-03-23] MEDS ORDERED: magnesium Cl slow-release 64mg tablet PO PRN (16:20)
[2024-03-23] MEDS ORDERED: magnesium sulf-water 2g/50mL 50 ML IV PRN (16:20)
[2024-03-23] MEDS ORDERED: potassium Cl 20 mEq SR tablet PO PRN (16:20)
[2024-03-23] MEDS: potassium Cl 20 mEq SR tablet PO PRN (16:31)
[2024-03-23] MEDS: K and/or MAG REPLACEMENT MC SCH (20:00)
[2024-03-23] MEDS: enoxaparin 40mg/0.4ml syringe SUBCUT SCH (22:21)
[2024-03-24] VITALS (21 sets, daily range): BP systolic 148–155; BP diastolic 82–91; PULSE 72–91; RESP 10–19; TEMP 97.7–99.3; O2SAT 93–98
[2024-03-24] MEDS ORDERED: acetaminophen 325mg tablet PO PRN (02:25)
[2024-03-24 06:10] LABS: BASOPHILS # (AUTO) 0.1 X10'3 (0-0.2); BASOPHILS % (AUTO) 0.3 % (0-1); EOSINOPHILS % (AUTO) 0.2 % (0-6); HEMATOCRIT 30.8 % (42.0-52.0); HEMOGLOBIN 10.2 g/dl (14.0-17.9); LYMPHOCYTES # (AUTO) 1.5 X10'3 (1.1-4.8); LYMPHOCYTES % (AUTO) 7.7 % (21-51); MEAN CORPUSCULAR HEMOGLOBIN 29.6 PG (27.0-31.0); MEAN CORPUSCULAR VOLUME 89.6 FL (78-98); MEAN PLATELET VOLUME 8.5 FL (7.4-10.4); MONOCYTES # (AUTO) 1.3 X10'3 (0-0.9); MONOCYTES % (AUTO) 6.7 % (2-12); NEUTROPHILS # (AUTO) 16.1 X10'3 (1.8-7.7); NEUTROPHILS % (AUTO) 85.1 % (42-75); PLATELET COUNT 453 X10'3 (140-440); RED BLOOD COUNT 3.44 X10'6 (4.70-6.10); RED CELL DISTRIBUTION WIDTH 14.3 % (11.5-14.5); WHITE BLOOD COUNT 18.9 X10'3 (4.5-11.0)
[2024-03-24 06:30] LABS: ALANINE AMINOTRANSFERASE 31 U/L (12-78); ALBUMIN 1.7 G/DL (3.4-5.0); ALBUMIN/GLOBULIN RATIO 0.5 (1.1-1.5); ALKALINE PHOSPHATASE 170 IU/L (46-116); ANION GAP 5 (8-16); ASPARTATE AMINO TRANSFERASE 24 U/L (10-37); BILIRUBIN,TOTAL 0.6 MG/DL (0.1-1.0); BLOOD UREA NITROGEN 7 MG/DL (7-18); BUN/CREATININE RATIO 16.7 (10.0-20.0); CALCIUM 7.5 MG/DL (8.5-10.1); CHLORIDE 99 MMOL/L (99-107); CREATININE 0.42 MG/DL (0.60-1.10); GLUCOSE 98 MG/DL (70-104); MAGNESIUM 1.8 MG/DL (1.5-2.4); SODIUM 131 MMOL/L (135-145); TOTAL CARBON DIOXIDE 26.6 MMOL/L (24-32); TOTAL PROTEIN 5.1 G/DL (6.4-8.2); eCRCL 227 ML/MIN; eGFR > 90 ML/MIN
[2024-03-24] MEDS: acetylcysteine 200 MG/ml 4ml vial INH SCH (08:00)
[2024-03-24] MEDS: guaiFENesin ER 600mg tablet PO SCH (08:36)
[2024-03-24] MEDS: lactose-reduced food (Ensure Enlive) - 237ml bottle PO SCH (18:00)
[2024-03-24 18:53] LABS: ALBUMIN 2.1 G/DL (3.4-5.0); ANION GAP 6 (8-16); BLOOD UREA NITROGEN 7 MG/DL (7-18); BUN/CREATININE RATIO 12.7 (10.0-20.0); CALCIUM 8.1 MG/DL (8.5-10.1); CHLORIDE 96 MMOL/L (99-107); CREATININE 0.55 MG/DL (0.60-1.10); GLUCOSE 113 MG/DL (70-104); SODIUM 129 MMOL/L (135-145); TOTAL CARBON DIOXIDE 27.1 MMOL/L (24-32); eCRCL 173 ML/MIN; eGFR > 90 ML/MIN
[2024-03-25] VITALS (19 sets, daily range): BP systolic 132–166; BP diastolic 77–93; PULSE 70–105; RESP 15–21; TEMP 97.1–98.7; O2SAT 93–99
[2024-03-25 05:40] LABS: BASOPHILS % (AUTO) 0.2 % (0-1); EOSINOPHILS % (AUTO) 0.2 % (0-6); HEMATOCRIT 31.8 % (42.0-52.0); HEMOGLOBIN 10.6 g/dl (14.0-17.9); LYMPHOCYTES # (AUTO) 1.7 X10'3 (1.1-4.8); MEAN CORPUSCULAR HEMOGLOBIN 29.7 PG (27.0-31.0); MEAN CORPUSCULAR HGB CONC 33.4 g/dL (33.0-36.5); MEAN CORPUSCULAR VOLUME 89.1 FL (78-98); MEAN PLATELET VOLUME 8.5 FL (7.4-10.4); MONOCYTES # (AUTO) 1.4 X10'3 (0-0.9); MONOCYTES % (AUTO) 8.3 % (2-12); NEUTROPHILS # (AUTO) 14.1 X10'3 (1.8-7.7); NEUTROPHILS % (AUTO) 81.3 % (42-75); PLATELET COUNT 536 X10'3 (140-440); RED BLOOD COUNT 3.57 X10'6 (4.70-6.10); RED CELL DISTRIBUTION WIDTH 13.9 % (11.5-14.5); WHITE BLOOD COUNT 17.4 X10'3 (4.5-11.0)
[2024-03-25 06:07] LABS: ALANINE AMINOTRANSFERASE 32 U/L (12-78); ALBUMIN 1.9 G/DL (3.4-5.0); ALBUMIN/GLOBULIN RATIO 0.5 (1.1-1.5); ALKALINE PHOSPHATASE 195 IU/L (46-116); ANION GAP 7 (8-16); ASPARTATE AMINO TRANSFERASE 26 U/L (10-37); BILIRUBIN,TOTAL 0.6 MG/DL (0.1-1.0); BLOOD UREA NITROGEN 6 MG/DL (7-18); BUN/CREATININE RATIO 12.2 (10.0-20.0); CALCIUM 7.9 MG/DL (8.5-10.1); CHLORIDE 96 MMOL/L (99-107); CREATININE 0.49 MG/DL (0.60-1.10); GLUCOSE 98 MG/DL (70-104); POTASSIUM 4.3 MMOL/L (3.5-5.1); SODIUM 129 MMOL/L (135-145); TOTAL CARBON DIOXIDE 26.2 MMOL/L (24-32); TOTAL PROTEIN 5.9 G/DL (6.4-8.2); eCRCL 194 ML/MIN; eGFR > 90 ML/MIN
[2024-03-25 07:09] LABS: PLATELET ESTIMATE INCREASED; TOTAL CELLS COUNTED 100
[2024-03-25 18:58] LABS: ALBUMIN 2.2 G/DL (3.4-5.0); ANION GAP 6 (8-16); BLOOD UREA NITROGEN 10 MG/DL (7-18); BUN/CREATININE RATIO 15.2 (10.0-20.0); CALCIUM 8.2 MG/DL (8.5-10.1); CHLORIDE 94 MMOL/L (99-107); CREATININE 0.66 MG/DL (0.60-1.10); GLUCOSE 117 MG/DL (70-104); POTASSIUM 4.3 MMOL/L (3.5-5.1); SODIUM 127 MMOL/L (135-145); TOTAL CARBON DIOXIDE 27.5 MMOL/L (24-32); eCRCL 144 ML/MIN; eGFR > 90 ML/MIN
[2024-03-25] MEDS: normal saline 1000ml 1,000 ML IV SCH (20:29)
[2024-03-26] VITALS (19 sets, daily range): BP systolic 105–157; BP diastolic 66–94; PULSE 69–87; RESP 16–23; TEMP 98.5–99.2; O2SAT 90–98
[2024-03-26 06:05] LABS: BILIRUBIN,URINE NEGATIVE (Neg); CLARITY,URINE CLEAR (Clear); COLOR,URINE YELLOW (Yellow); GLUCOSE, URINE NEGATIVE (Neg); KETONES,URINE NEGATIVE (Neg); LEUKOCYTE ESTERASE ,URINE NEGATIVE (Neg); NITRITES, URINE NEGATIVE (Neg); OCCULT BLOOD,URINE NEGATIVE (Neg); PROTEIN,URINE NEGATIVE (Neg); UROBILINOGEN,URINE 0.2 E.U/dL (0.2-1.0)
[2024-03-26 06:06] LABS: UA COLLECTION TYPE NON-SPECIFIED
[2024-03-26 07:49] LABS: BASOPHILS # (AUTO) 0.1 X10'3 (0-0.2); BASOPHILS % (AUTO) 0.4 % (0-1); EOSINOPHILS # (AUTO) 0.1 X10'3 (0-0.9); EOSINOPHILS % (AUTO) 0.5 % (0-6); HEMATOCRIT 32.8 % (42.0-52.0); HEMOGLOBIN 10.7 g/dl (14.0-17.9); LYMPHOCYTES # (AUTO) 1.8 X10'3 (1.1-4.8); LYMPHOCYTES % (AUTO) 12.3 % (21-51); MEAN CORPUSCULAR HEMOGLOBIN 29.2 PG (27.0-31.0); MEAN CORPUSCULAR HGB CONC 32.6 g/dL (33.0-36.5); MEAN CORPUSCULAR VOLUME 89.7 FL (78-98); MEAN PLATELET VOLUME 8.2 FL (7.4-10.4); MONOCYTES # (AUTO) 1.3 X10'3 (0-0.9); MONOCYTES % (AUTO) 8.7 % (2-12); NEUTROPHILS # (AUTO) 11.6 X10'3 (1.8-7.7); NEUTROPHILS % (AUTO) 78.1 % (42-75); PLATELET COUNT 566 X10'3 (140-440); RED BLOOD COUNT 3.66 X10'6 (4.70-6.10); RED CELL DISTRIBUTION WIDTH 14.4 % (11.5-14.5); WHITE BLOOD COUNT 14.8 X10'3 (4.5-11.0)
[2024-03-26 08:12] LABS: ALANINE AMINOTRANSFERASE 32 U/L (12-78); ALBUMIN 2.2 G/DL (3.4-5.0); ALBUMIN/GLOBULIN RATIO 0.5 (1.1-1.5); ALKALINE PHOSPHATASE 179 IU/L (46-116); ANION GAP 7 (8-16); ASPARTATE AMINO TRANSFERASE 22 U/L (10-37); BILIRUBIN,TOTAL 0.5 MG/DL (0.1-1.0); BLOOD UREA NITROGEN 8 MG/DL (7-18); BUN/CREATININE RATIO 15.1 (10.0-20.0); CALCIUM 8.1 MG/DL (8.5-10.1); CHLORIDE 95 MMOL/L (99-107); CREATININE 0.53 MG/DL (0.60-1.10); GLUCOSE 105 MG/DL (70-104); MAGNESIUM 1.7 MG/DL (1.5-2.4); POTASSIUM 4.3 MMOL/L (3.5-5.1); SODIUM 128 MMOL/L (135-145); TOTAL CARBON DIOXIDE 25.7 MMOL/L (24-32); TOTAL PROTEIN 6.4 G/DL (6.4-8.2); eCRCL 180 ML/MIN; eGFR > 90 ML/MIN
[2024-03-27 02:00] VITALS: BP 129/74; PULSE 78; RESP 18; TEMP 98.2; O2SAT 95
[2024-03-27 03:48] VITALS: PULSE 82; RESP 20; O2SAT 97
[2024-03-27 03:54] VITALS: PULSE 90; RESP 18
[2024-03-27 06:00] VITALS: BP 128/79; PULSE 86; RESP 18; TEMP 97.8; O2SAT 94
[2024-03-27 07:12] LABS: MAGNESIUM 1.9 MG/DL (1.5-2.4)
[2024-03-27 08:02] VITALS: PULSE 78; RESP 18; O2SAT 96
[2024-03-27 08:04] VITALS: PULSE 86; RESP 18
[2024-03-27 10:10] LABS: BASOPHILS # (AUTO) 0.2 X10'3 (0-0.2); HEMOGLOBIN 11.2 g/dl (14.0-17.9); MEAN CORPUSCULAR VOLUME 90.6 FL (78-98)
[2024-03-27 10:11] LABS: BASOPHILS % (AUTO) 1.3 % (0-1); EOSINOPHILS # (AUTO) 0.1 X10'3 (0-0.9); EOSINOPHILS % (AUTO) 0.5 % (0-6); LYMPHOCYTES # (AUTO) 1.8 X10'3 (1.1-4.8); LYMPHOCYTES % (AUTO) 13.6 % (21-51); MEAN CORPUSCULAR HEMOGLOBIN 29.8 PG (27.0-31.0); MEAN CORPUSCULAR HGB CONC 32.9 g/dL (33.0-36.5); MEAN PLATELET VOLUME 8.2 FL (7.4-10.4); MONOCYTES % (AUTO) 7.7 % (2-12); NEUTROPHILS # (AUTO) 10.3 X10'3 (1.8-7.7); NEUTROPHILS % (AUTO) 76.9 % (42-75); PLATELET COUNT 633 X10'3 (140-440); RED BLOOD COUNT 3.75 X10'6 (4.70-6.10); RED CELL DISTRIBUTION WIDTH 14.6 % (11.5-14.5); WHITE BLOOD COUNT 13.4 X10'3 (4.5-11.0)
[2024-03-27 10:20] LABS: ALBUMIN 2.3 G/DL (3.4-5.0); ANION GAP 9 (8-16); BLOOD UREA NITROGEN 7 MG/DL (7-18); BUN/CREATININE RATIO 11.5 (10.0-20.0); CALCIUM 8.5 MG/DL (8.5-10.1); CHLORIDE 94 MMOL/L (99-107); CREATININE 0.61 MG/DL (0.60-1.10); GLUCOSE 103 MG/DL (70-104); POTASSIUM 4.6 MMOL/L (3.5-5.1); SODIUM 127 MMOL/L (135-145); eCRCL 156 ML/MIN; eGFR > 90 ML/MIN
[2024-03-27] MEDS ORDERED: LINE600T14 PO (10:37)
[2024-03-27] MEDS ORDERED: HYDR-3964 PO (10:37)
== END 2024-03-27 16:01 | disposition home or self-care (01) | DRG 710 ==
LOC: ER 05:31 → ED HOLD 08:48 → UNDOADMIN 08:48 → ED HOLD 11:25 → PCU 3S 11:25 → ED HOLD 14:20 → ICU 2S 03-21 18:18 → PCU 3S 03-23 01:04
PROVIDERS: ADMIT Internal Medicine; ATTEND Internal Medicine
PROC: 0BJ08ZZ Inspection of Tracheobronchial Tree, Via Natural or Artificial Opening Endoscopic (ICD-10-PCS; 2024-03-21)
PROC: 0BNF4ZZ Release Right Lower Lung Lobe, Percutaneous Endoscopic Approach (ICD-10-PCS; principal; 2024-03-21 15:32)
PROC: 0W9B30Z Drainage of Left Pleural Cavity with Drainage Device, Percutaneous Approach (ICD-10-PCS; 2024-03-26)
PROC: 0W9930Z Drainage of Right Pleural Cavity with Drainage Device, Percutaneous Approach (ICD-10-PCS; 2024-03-26)
PROC: 05HB33Z Insertion of Infusion Device into Right Basilic Vein, Percutaneous Approach (ICD-10-PCS; 2024-03-26)
PROC: B54MZZA Ultrasonography of Right Upper Extremity Veins, Guidance (ICD-10-PCS; 2024-03-26)
DX: A41.9 Sepsis, unspecified organism (principal); J96.00 Acute respiratory failure, unspecified whether with hypoxia or hypercapnia; R65.21 Severe sepsis with septic shock; J86.9 Pyothorax without fistula; J18.9 Pneumonia, unspecified organism; J90 Pleural effusion, not elsewhere classified; E87.1 Hypo-osmolality and hyponatremia; J44.1 Chronic obstructive pulmonary disease with (acute) exacerbation; Z20.822 Contact with and (suspected) exposure to COVID-19; E87.6 Hypokalemia; F17.210 Nicotine dependence, cigarettes, uncomplicated; I10 Essential (primary) hypertension; J20.9 Acute bronchitis, unspecified; J98.11 Atelectasis; Z63.4 Disappearance and death of family member; Z80.0 Family history of malignant neoplasm of digestive organs
CPT/HCPCS: 36410; 36415; 36600; 71045; 71250; 71260; 76942; 80048; 80053; 80202; 81003; 82803; 82948; 83036; 83605; 83735; 84100; 84145; 84478; 85007; 85018; 85025; 85610; 85730; 86769; 86885; 86900; 86901; 86920; 87040; 87070; 87075; 87081; 87102; 93005; 93306; 94002; 94003; 94640; 94664; 94668; 94760; 97116; 97162; 97530; 99285; A4215; A4615; A4618; A4620; A4628; A6213; A6250; A6258; A6449; A7000; A7015; C1751; C1758; G0378; J0131; J0456; J0696; J1170; J1650; J1885; J1940; J2020; J2250; J2270; J2543; J2704; J2919; J3010; J3370; J3411; J3490; J7030; J7040; J7120; P9045; Q9967

== ENCOUNTER 2024-04-16 11:33 | Outpatient (CLI) | payer MEDICAID ==
[~2024-04-16 11:33] MED LIST: AMLO-708 PO; HYDR-3964 PO; LINE600T14 PO; MULT-1085 PO; NICO2GUM29
== END 2024-04-16 23:59 | disposition home or self-care (01) ==
LOC: RAD 11:33
PROVIDERS: ATTEND Physician Assistant
DX: R91.1 Solitary pulmonary nodule (principal); J91.8 Pleural effusion in other conditions classified elsewhere
CPT/HCPCS: 71046